=== PATIENT | female | born 1955 | race Caucasian/White ===

== ENCOUNTER 2022-10-31 09:25 | Emergency (ER) | payer MEDICARE, SELFPAY ==
--- NOTE | 2022-10-31 09:36 | ED.ABDPAIN ---
HPI - Abdominal Pain General Chief Complaint: Abdominal Pain Stated Complaint: BLOATED/NAUSEA/FEVER/CHILLS Time Seen by Provider: 10/31/22 09:36 Source: patient and RN notes reviewed History of Present Illness HPI narrative: Patient is a 67-year-old female who presents to urgent care with complaints of lower abdominal bloating, flank pain, nausea, urinary frequency and urgency. Patient has a strong history of kidney stones with stent placement and lithotripsy with the last 1 being in March of 2022. Patient states symptoms started on Sunday and these are consistent with her typical kidney stone symptoms. Patient has been taking Tylenol for the chills and sweats. Denies any vomiting. No other acute complaints. No acute distress noted. Patient aware of plan of care. Some parts of this dictation were generated by voice recognition software and may contain typographical and/or grammatical inaccuracies. Related Data Home Medications Medication Instructions Recorded Confirmed allopurinol 300 mg tablet 300 mg PO DIRECTED 10/31/22 10/31/22 atorvastatin 40 mg tablet 40 mg PO DAILY 10/31/22 10/31/22 glimepiride 1 mg tablet 1 mg PO DAILY 10/31/22 10/31/22 ipratropium bromide 42 mcg (0.06 42 mcg intranasal DIRECTED 10/31/22 10/31/22 %) nasal spray metformin 500 mg tablet,extended 500 mg PO DIRECTED 10/31/22 10/31/22 release 24 hr sertraline 100 mg tablet 100 mg PO DAILY 10/31/22 10/31/22 sertraline 50 mg tablet 50 mg PO DAILY 10/31/22 10/31/22 Allergies Allergy/AdvReac Type Severity Reaction Status Date / Time Sulfa (Sulfonamide Allergy Rash Verified 10/31/22 09:31 Antibiotics) terconazole Allergy Other Verified 10/31/22 09:31 Review of Systems Review of Systems: CONSTITUTIONAL: Denies fever, chills, or sweats. EYES: Denies visual changes, redness, or discharge. ENT: Denies rhinorrhea, congestion, sore throat, or otalgia. CARDIOVASCULAR: Denies chest pain, palpitations, or edema. RESPIRATORY: Denies cough or dyspnea. GASTROINTESTINAL: Reports of nausea and abdominal bloating GENITOURINARY: Reports of urinary urgency, frequency, bilateral flank pain SKIN: Denies rash or itching. MUSCULOSKELETAL: Denies back pain, joint pain, or myalgia. NEUROLOGIC: Denies headache, numbness, or weakness. All other systems reviewed are negative, except as documented in HPI. PMFSH Comments At the time of my signature, I reviewed and agree with the nursing past medical, surgical, social, and family history. There is no relevant family history pertinent to the patient complaint. Exam Narrative: GENERAL: This is a well-nourished, well-developed patient, in no apparent distress. HEAD: normocephalic, atraumatic. EYES: PERRL. Sclera clear/white. Vision is grossly intact. EARS: External ears normal NOSE: External nose normal with no obvious nasal discharge, nares without redness, no rhinorrhea. THROAT: Mucous membranes moist NECK: Neck supple CARDIOVASCULAR: Regular rate RESPIRATORY: Clear to auscultation. Breath sounds equal bilaterally. No wheezes, rales, or rhonchi. GASTROINTESTINAL: Abdomen soft, moderate right and left lower quadrant/suprapubic tenderness. Bowel sounds are active. SKIN: warm, intact with no suspicious lesions or rash, good texture and turgor. NEURO: awake, alert, and oriented to person, place and time. There were no obvious focal neurologic abnormalities. EXTREMITIES: No clubbing, cyanosis, or edema. BACK: Mild bilateral CVA tenderness Course Course Level of Care: Express Care Visit Vital Signs Vital signs: Vital Signs Temperature 97.7 F 10/31/22 09:48 Pulse Rate 87 10/31/22 09:48 Respiratory Rate 16 10/31/22 09:48 Blood Pressure 159/98 H 10/31/22 09:48 Pulse Oximetry 97 10/31/22 09:48 Temperature 97.7 F 10/31/22 09:48 Pulse Rate 87 10/31/22 09:48 Respiratory Rate 16 10/31/22 09:48 Blood Pressure 159/98 H 10/31/22 09:48 Pulse Oximetry 97 10/31/22 09:48
[2022-10-31 09:48] VITALS: BP 159/98; PULSE 87; RESP 16; TEMP 36.5; O2SAT 97
== END 2022-10-31 10:04 | disposition short-term general hospital (02) ==
PROVIDERS: Emergency Provider Nurse Practitioner Family
DX: R39.15 Urgency of urination (principal); R10.9 Unspecified abdominal pain; R82.90 Unspecified abnormal findings in urine; M10.9 Gout, unspecified; M06.9 Rheumatoid arthritis, unspecified; E11.9 Type 2 diabetes mellitus without complications; F41.9 Anxiety disorder, unspecified; Z96.0 Presence of urogenital implants
CPT/HCPCS: 81003; 99202; G0463

== ENCOUNTER 2022-10-31 10:30 | Inpatient (IN) | payer MEDICARE, SELFPAY ==
--- NOTE | ~2022-10-31 | CT_ITS ---
EXAMINATION: CT abdomen pelvis w con DATE: 10/31/2022 12:02 INDICATION: Right flank pain. TECHNIQUE: Computed tomography (CT) of the abdomen and pelvis was performed with 100 mL Omnipaque 350 intravenous contrast. Automated exposure control and iterative reconstruction technique were employe d. The dose-length product was 1124.38 mGy-cm. COMPARISON: None. FINDINGS: The visualized portions of the lung bases demonstrate mild scarring in paraspinal right low er lobe. There are a few scattered nodules in the lungs measuring up to 7 mm. Some of the nodules dem onstrate groundglass halos. No pleural effusion. The heart size is normal. No pericardial effusion. T he liver demonstrates hypertrophy of left lateral segment and surface nodularity, consistent with cir rhosis. There is mild intrahepatic and extrahepatic biliary duct dilatation. The common duct measures 12 mm. There are changes of cholecystectomy. The spleen is normal. There is mild fat stranding aroun d the pancreas, consistent with acute interstitial pancreatitis. The adrenal glands are normal. There are cysts in the kidneys measuring up to 2.2 cm on the right. There is a 5 mm stone in right kidney. There is diverticulosis of the colon without evidence of diverticulitis. There are no dilated loops of bowel. The appendix is normal. Paraesophageal varices are noted. Periumbilical varices are noted. There are no pathologically enlarged lymph nodes. There is no free intraperitoneal fluid. There is se nicolle lower lumbar spondylosis. There is mild thoracic spondylosis. IMPRESSION: 1. Cirrhosis of the liver with portal venous hypertension. 2. Acute interstitial pancreatitis. 3. Mild intrahepatic and extrahepatic biliary duct dilatation status post cholecystectomy. 4. Pulmonary nodules measuring up to 7 mm, probably infection. Noncontrast low-dose chest CT is recom mended in 6 months. Reviewed, dictated and finalized at location A. ANNEAL[facility] IMPRESSION: 1. Cirrhosis of the liver with portal venous hypertension. 2. Acute interstitial pancreatitis. 3. Mild intrahepatic and extrahepatic biliary duct dilatation status post chanel cystectomy. 4. Pulmonary nodules measuring up to 7 mm, probably infection. Noncontrast low- dose chest CT is recommended in 6 months.
--- NOTE | ~2022-10-31 | MR_ITS ---
EXAMINATION: MR MRCP wo/w con/w 3D wo ind DATE: 10/31/2022 16:20 INDICATION: Pancreatitis, abdominal pain TECHNIQUE: Magnetic resonance imaging (MRI) of the abdomen was performed without and with intravenous contrast. Sequences included coronal T2-weighted SS-FSE ARC, coronal T2-weighted FS SS-FSE, coronal T2-weighted 2D FS FIESTA, Water:Coronal LAVA-Flex, sagittal T2-weighted SS-FSE ARC, axial SSFSE ARC, axial 3D DualEcho, axial DWI B=600, axial T1-weighted LAVA, FAT:Coronal LAVA-Flex, and coronal in and opposed phase LAVA-Flex. Thick-slab T2-weighted FRFSE-XL images were obtained for magnetic resonance cholangiopancreatography (MRCP). Maximum intensity projection 3-D reconstructions of the volumetric data were created by the technologist. Postcontrast sequences included a time course of axial T1-weig hted LAVA, FAT:Coronal LAVA-Flex, coronal in and opposed phase LAVA-Flex, and Water:Coronal LAVA-Flex . COMPARISON: CT from today CONTRAST: Multihance, 18 cc FINDINGS: ABDOMEN MRI: Nodules of the visualized lung bases measure up to 1.6 cm. The heart size is normal. The re is nodularity of the liver surface. There are numerous small arterially enhancing lesions of the l iver without washout on delayed images. The gallbladder is surgically absent. The spleen and adrenal glands are normal. Cysts of the kidneys measure up to 2.2 cm on the right. There is mild peripancrea tic edema. There are no areas of restricted diffusion. No pathologically enlarged abdominal lymph nod es are identified. There are no dilated loops of bowel. The portal and hepatic veins are patent. ABDOMEN MRCP: There is mild enlargement of the common bile duct and central intrahepatic ducts which is likely due to post cholecystectomy state. The common bile duct measures up to 12 mm. There is arellano sition to normal caliber in the head of the pancreas without obvious stricture identified. IMPRESSION: 1. Mild peripancreatic fluid, consistent with interstitial edematous pancreatitis. 2. Dilated common bile duct and intrahepatic ducts, consistent with post cholecystectomy state. 3. Cirrhosis with numerous small arterial enhancing lesions without washout in the liver. Follow-up M RI without and with contrast in 3-6 months is recommended. Reviewed, dictated and finalized at location L. TIC ENGINEER IMPRESSION: 1. Mild peripancreatic fluid, consistent with interstitial edematous pancreatit is. 2. Dilated common bile duct and intrahepatic ducts, consistent with post cholec ystectomy state. 3. Cirrhosis with numerous small arterial enhancing lesions without washout in the liver. Follow-up MRI without and with contrast in 3-6 months is recommended .
[2022-10-31 10:54] VITALS: BP 153/103; PULSE 86; RESP 18; TEMP 36.4; O2SAT 96
[2022-10-31 11:27] LABS: Basophils Absolute Auto 0.1 K/mm3 (0.0-0.1); Basophils Percent Auto 0.5 % (0.2-1.2); Eosinophils Absolute Auto 0.1 K/mm3 (0-0.3); Eosinophils Percent Auto 1.1 % (0-4.4); Hematocrit 45.9 % (37.0-47.0); Hemoglobin 14.7 g/dL (12.0-15.0); Immature Granulocyte Absolute 0.03 K/mm3 (0.00-0.031); Immature Granulocyte Percent A 0.3 % (0-0.5); Lymphocytes Absolute Auto 1.62 K/mm3 (0.9-3.2); Lymphocytes Percent Auto 17.1 % (18.3-44.2); Mean Corpuscular Hemoglobin 28.8 pg (26-34); Mean Corpuscular Volume 89.8 fl (80-100); Mean Platelet Volume 10.9 fl (7.4-10.4); Monocytes Absolute Auto 0.7 K/mm3 (0.1-0.6); Platelet Count Result 279 k/mm3 (150-375); Red Blood Count 5.11 M/mm3 (4.2-5.4); Red Cell Distribution Width 13.7 % (11.5-14.5); White Blood Count 9.5 K/mm3 (4.5-10.0)
[2022-10-31 11:28] LABS: Add Urine Microscopic? YES; Appearance Urine Clear (Clear); Bilirubin Urine 1+ (Negative); Blood Urine 1+ (Negative); Color Urine Yellow (Yellow); Glucose Urine UA 3+ mg/dL (Negative); Ketones Urine 1+ mg/dL (Negative); Leukocyte Esterase Ur Trace LEU/UL (Negative); Nitrate Urine Negative (Negative); Protein Urine Trace mg/dL (Negative); Specific Grav Ur >= 1.030 (1.001-1.035); Urobilinogen Urine 0.2 mg/dL (<2.0)
--- NOTE | 2022-10-31 11:29 | ED.ABDPAIN ---
HPI - Abdominal Pain General Chief Complaint: Abdominal Pain Stated Complaint: FLANK/ABD PAIN Time Seen by Provider: 10/31/22 11:21 History of Present Illness HPI narrative: 67-year-old female status post cholecystectomy presents to the emergency room for evaluation of lower abdominal pain since Sunday. Also complaining with occasional nausea. Denies any vomiting or diarrhea. Patient has a history of kidney stones. Denies any hematuria or urinary retention. States pain radiates into her right flank. Patient is afebrile Related Data Home Medications Medication Instructions Recorded Confirmed allopurinol 300 mg tablet 300 mg PO DIRECTED 10/31/22 10/31/22 atorvastatin 40 mg tablet 40 mg PO DAILY 10/31/22 10/31/22 glimepiride 1 mg tablet 1 mg PO DAILY 10/31/22 10/31/22 ipratropium bromide 42 mcg (0.06 42 mcg intranasal DIRECTED 10/31/22 10/31/22 %) nasal spray metformin 500 mg tablet,extended 500 mg PO DIRECTED 10/31/22 10/31/22 release 24 hr sertraline 100 mg tablet 100 mg PO DAILY 10/31/22 10/31/22 sertraline 50 mg tablet 50 mg PO DAILY 10/31/22 10/31/22 Allergies Allergy/AdvReac Type Severity Reaction Status Date / Time Sulfa (Sulfonamide Allergy Rash Verified 10/31/22 09:31 Antibiotics) terconazole Allergy Other Verified 10/31/22 09:31 promethazine [From Phenergan] AdvReac Shakiness Verified 10/31/22 11:39 Review of Systems Review of Systems: CONSTITUTIONAL: Denies fever, chills, or sweats. EYES: Denies visual changes, redness, or discharge. ENT: Denies rhinorrhea, congestion, sore throat, or otalgia. CARDIOVASCULAR: Denies chest pain, palpitations, or edema. RESPIRATORY: Denies cough or dyspnea. GASTROINTESTINAL: Reports abdominal pain, nausea, denies vomiting and diarrhea GENITOURINARY: Denies dysuria or hematuria. SKIN: Denies rash or itching. MUSCULOSKELETAL: Denies back pain, joint pain, or myalgia. NEUROLOGIC: Denies headache, numbness, dizziness, or weakness. PSYCHIATRIC: Denies anxiety or depression. Exam Narrative: GENERAL: Well-appearing, well-nourished, no physical limitations, and in no acute distress. HEAD: Normocephalic, atraumatic. EYES: Conjunctivae normal, PERRLA and EOMI. CHEST: Clear to auscultation. No respiratory distress. No wheezes rales or rhonchi. HEART: Regular rate and rhythm. No murmur heard. Normal peripheral pulses. ABDOMEN: Soft, right lower quadrant left lower quadrant suprapubic tenderness, nondistended, normal active bowel sounds. : Normal external male/female exam. BACK: Right CVA tendernes EXTREMITIES: Normal range of motion. No edema. No clubbing or cyanosis SKIN: Warm, dry, no rash. No noted wounds NEURO: No focal deficits. Alert and oriented x3. MAEW. CN's II-XI intact bilaterally, normal gait PSYCH: Cooperative. Normal mood and affect. Course Vital Signs Vital signs: Vital Signs Temperature 36.4 C L 10/31/22 10:54 Pulse Rate 86 10/31/22 10:54 Respiratory Rate 18 10/31/22 10:54 Blood Pressure 153/103 H 10/31/22 10:54 Pulse Oximetry 96 10/31/22 10:54 Oxygen Delivery Room Air 10/31/22 10:54 Temperature 36.4 C L 10/31/22 10:54 Pulse Rate 86 10/31/22 10:54 Respiratory Rate 18 10/31/22 10:54 Blood Pressure 153/103 H 10/31/22 10:54 Pulse Oximetry 96 10/31/22 10:54 Oxygen Delivery Room Air 10/31/22 10:54 MDM - Abdominal Pain Lab Data 10/31/22 11:12 10/31/22 11:12 Labs: Lab Results 10/31/22 10/31/22 10/31/22 Range/Units 11:12 11:12 11:18 WBC 9.5 (4.5-10.0) K/mm3 RBC 5.11 (4.2-5.4) M/mm3 Hgb 14.7 (12.0-15.0) g/dL Hct 45.9 (37.0-47.0) % MCV 89.8 (80-100) fl MCH 28.8 (26-34) pg MCHC 32.0 (32-36) g/dl RDW 13.7 (11.5-14.5) % Plt Count 279 (150-375) k/mm3 MPV 10.9 H (7.4-10.4) fl Immature Gran % (Auto) 0.3 (0-0.5) % Neut % (Auto) 74.0 H (45.5-73.1) % Lymph % (Auto) 17.1 L (18.3-44.2) % [place] % (Auto) 7.0
[2022-10-31 11:35] LABS: Alanine Aminotransferase 446 U/L (6-35); Albumin Level 4.7 g/dL (3.5-5.1); Alkaline Phosphatase 395 U/L (38-126); Anion Gap 9 mmol/L (8-16); Aspartate Amino Transferase 281 U/L (14-36); Blood Urea Nitrogen 15 mg/dL (7-17); Calcium 9.9 mg/dL (8.4-10.2); Carbon Dioxide 26 mmol/L (22-30); Chloride 99 mmol/L (98-107); Estimated Glomerular Filt Rate > 60; Glucose 264 mg/dL (65-110); Lipase 1117 U/L (23-300); Potassium 3.7 mmol/L (3.4-5.0); Sodium 134 mmol/L (137-145)
[2022-10-31 11:37] LABS: Calcium Oxalate Crystals Urine Present /hpf; Mucus Urine Few /lpf; Squamous Epithelial Cell Urine Rare /hpf (Few)
[2022-10-31] MEDS: SODIUM CHLORIDE 0.9% IV 1,000 ML 999 ML IV CONT (11:40)
[2022-10-31 13:19] LABS: SARS-CoV-2 RNA PCR Negative
[2022-10-31 13:49] VITALS: BP 139/83; PULSE 78; RESP 18; O2SAT 97
--- NOTE | 2022-10-31 14:19 | ADMGEN ---
This patient, Dana Underwood, was admitted to 3 Med Surg Room 304-02. Patient/family oriented to hospital policies and general routines including ID bracelet, bed and alarms, visiting hours, pain management, procedures, bathroom and other care routines, personal items, smoking policy, room service/diet, and visiting hours. Information on how to activate the Rapid Response Team has been discussed. Patient/Family are encouraged to report perceived risks to care and to ask questions if they do not understand what they are told or what they should do.
[2022-10-31 17:16] LABS: Creatine Kinase 72 U/L (30-135); Magnesium 1.8 mg/dL (1.6-2.3); Prothrombin Time 12.9 Seconds (11.1-14.7)
[2022-10-31 17:18] LABS: Partial Thromboplastin Time 25.5 SECONDS (22.3-36.8)
--- NOTE | 2022-10-31 17:30 | PM.IMHP ---
H&P: HPI History of Present Illness Date/Time: 10/31/22 17:30 Chief Complaint: Abdominal pain. Narrative: This is a very pleasant 67-year-old female with history of cirrhosis secondary to COELLO, kidney stones, diabetes, and hyperlipidemia who presented to the emergency department from urgent care for evaluation of abdominal pain. She endorses intermittent abdominal pain since Sunday including occasional ?pings in the mid to low back radiating to the flanks and occasionally into the groin. She has thus far been attributing the pain to kidney stones and due to ongoing issue she went to urgent care today and was referred to the ER. CT of the abdomen and pelvis showed a 5 millimeter stone right kidney but more importantly showed acute interstitial pancreatitis and mild intrahepatic and extrahepatic biliary duct dilatation status post cholecystectomy. Her lipase, AST, ALT, and alkaline phosphatase were all elevated and she is being admitted in this setting for further treatment and evaluation. She has since been started on IV fluid rehydration and is receiving analgesics intermittently which seemed to have helped her symptoms. She has no history of pancreatitis and she is surprised by these findings. With further questioning she has had intermittent burning discomfort in the epigastric region since Sunday night which she attributes to indigestion though she very rarely has GERD symptoms. She did have nausea and 1 episode of emesis this morning during her MRCP but that has since resolved. She has not had a fever to her knowledge but does endorse sweats. No cold or flu symptoms. No diarrhea, melena, hematochezia, or hematemesis. Review of Systems Review of Systems: Twelve systems were reviewed and are negative except for as per HPI. 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 Type 2 diabetes mellitus Surgical History Surgical History (Updated 10/31/22 @ 15:42 by Jovanna Navarrete PA-C) History of carpal tunnel release of both wrists History of cholecystectomy History of cystoscopy History of tonsillectomy Family History Family History (Updated 10/31/22 @ 23:42 by Jovanna Navarrete PA-C) Other Hypertension Social History Social History (Updated 10/31/22 @ 23:43 by Jovanna Navarrete PA-C) Social History: Surrogate medical decision maker: Gui Underwood, spouse. Code status: Full code. Smoking status: Never smoker Alcohol intake: never Substance use: never Substance use type: does not use Lack of Transportation: No Lack of Food: Never True Current Housing: I Have Housing Concerned About Future Housing: No Difficulty Paying Gas/Electric Bills: No Difficulty Paying for Meds: No Currently Unemployed: No Education: Master's Degree or Higher Difficulty w/ Childcare or Family Care: No Additional living arrangements comments: Lives in [place] with spouse. They have an apartment in town and visit their children and grandchildren often. 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[employer], plays harp and organ Spiritual care concerns: No Meds Home Medications and Allergies Home Medications Medication Instructions Recorded Confirmed Type Adult Probiotic 1 cap PO DAILY 10/31/22 10/31/22 History allopurinol 300 mg tablet 300 mg PO DAILY 10/31/22 10/31/22 History atorvastatin 40 mg tablet 40 mg PO DAILY 10/31/22 10/31/22 History glimepiride 1 mg tablet 1 mg PO BID 10/31/22 10/31/22 History insulin NPH isoph U-100 human 100 34 unit subcut HS 10/31/22 10/31/22 History unit/mL (3 mL) subcutaneous pen (Novolin N FlexPen) magnesium citrate 100 mg capsule 200 mg PO DAILY 10/31/22 10/31/22 History metformin 500 mg tablet,extended 1,00
[2022-10-31 18:07] LABS: Glucose Point of Care 151 mg/dl (65-105)
[2022-10-31 18:42] LABS: Hepatitis B Surface Antigen Negative (Negative)
[2022-10-31 18:48] LABS: HAV RESULT Negative (Negative); Hepatitis B Core IgM Result Negative (Negative)
[2022-10-31 19:00] LABS: Hepatitis C Virus Antibody Negative (Negative)
[2022-10-31 20:00] VITALS: PULSE 67; RESP 19; O2SAT 97
[2022-10-31 21:27] LABS: Glucose Point of Care 138 mg/dl (65-105)
[2022-10-31 22:00] VITALS: BP 154/73; PULSE 67; RESP 19; TEMP 36.6; O2SAT 97
[2022-10-31 23:43] VITALS: PULSE 68; O2SAT 96
[2022-11-01 01:10] LABS: Acetaminophen < 10 ug/mL (10-30)
[2022-11-01 01:25] LABS: Creatine Kinase 67 U/L (30-135)
[2022-11-01 02:06] VITALS: PULSE 65; O2SAT 96; O2SAT 97
[2022-11-01 06:00] VITALS: BP 158/81; PULSE 73; RESP 18; TEMP 36.3; O2SAT 95
[2022-11-01 06:17] LABS: Hematocrit 39.4 % (37.0-47.0); Hemoglobin 12.7 g/dL (12.0-15.0); Mean Corpuscular HGB Conc 32.2 g/dl (32-36); Mean Corpuscular Hemoglobin 28.5 pg (26-34); Mean Corpuscular Volume 88.3 fl (80-100); Mean Platelet Volume 10.9 fl (7.4-10.4); Platelet Count Result 223 k/mm3 (150-375); Red Blood Count 4.46 M/mm3 (4.2-5.4); Red Cell Distribution Width 13.7 % (11.5-14.5); White Blood Count 8.9 K/mm3 (4.5-10.0)
[2022-11-01 06:28] LABS: INR 1.1; Prothrombin Time 13.4 Seconds (11.1-14.7)
[2022-11-01 06:29] LABS: Partial Thromboplastin Time 26.3 SECONDS (22.3-36.8)
[2022-11-01 06:33] LABS: Alanine Aminotransferase 334 U/L (6-35); Alkaline Phosphatase 334 U/L (38-126); Anion Gap 5 mmol/L (8-16); Aspartate Amino Transferase 249 U/L (14-36); Bilirubin,Total 0.9 mg/dL (0.2-1.3); Blood Urea Nitrogen 10 mg/dL (7-17); Calcium 8.9 mg/dL (8.4-10.2); Carbon Dioxide 24 mmol/L (22-30); Chloride 107 mmol/L (98-107); Estimated Glomerular Filt Rate > 60; Glucose 163 mg/dL (65-110); Lipase 1216 U/L (23-300); Potassium 3.5 mmol/L (3.4-5.0); Sodium 136 mmol/L (137-145)
[2022-11-01 07:01] LABS: Hepatitis B Surface Antigen Negative (Negative)
[2022-11-01 07:07] LABS: HAV RESULT Negative (Negative); Hepatitis B Core IgM Result Negative (Negative)
[2022-11-01 07:18] LABS: Hepatitis C Virus Antibody Negative (Negative)
[2022-11-01] MEDS: SODIUM CHLORIDE 0.9% IV 1,000 ML 125 ML IV CONT ×2 (08:38→16:25)
[2022-11-01 10:46] VITALS: O2SAT 94
--- NOTE | 2022-11-01 11:16 | PM.IMPN ---
Progress Note: A&P Assessment and Plan (1) Acute pancreatitis: Code(s): K85.90 - Acute pancreatitis without necrosis or infection, unspecified Status: Acute Assessment and Plan: NPO, continue IV fluids and pain control. MRCP noted. Await plan from GI (2) Dilated bile duct: Code(s): K83.8 - Other specified diseases of biliary tract Status: Acute Assessment and Plan: Await planned GI (3) Transaminitis: Code(s): R74.01 - Elevation of levels of liver transaminase levels Status: Acute Assessment and Plan: Patient has chronic liver disease, reportedly cirrhosis due to COELLO. Her LFTs are not typically this high however. She indicates that she had a blood test done not long ago ?for cancer? which came back a bit elevated however that is being monitored. Records requested from her GI specialist in [place]. (4) Cirrhosis: Code(s): K74.60 - Unspecified cirrhosis of liver Status: Acute Assessment and Plan: No evidence of decompensation. She has known varices with no history of bleeding. (5) Pulmonary nodules: Code(s): R91.8 - Other nonspecific abnormal finding of lung field Status: Acute Assessment and Plan: No history to suggest active pulmonary infection. Radiologist recommends repeat CT in several months. (6) Abnormal urinalysis: Code(s): R82.90 - Unspecified abnormal findings in urine Status: Inactive Assessment and Plan: No symptoms to suggest UTI. (7) Kidney stones: Code(s): N20.0 - Calculus of kidney Status: Acute Assessment and Plan: 5 millimeter right kidney stone noted on imaging. Not currently causing issues. (8) Type 2 diabetes mellitus: Code(s): E11.9 - Type 2 diabetes mellitus without complications Status: Acute Assessment and Plan: Hold basal insulin and glimepiride as she is NPO and has not been eating well. Initiate sliding scale insulin, Accu-Cheks, and hypoglycemic protocol. Check hemoglobin A1c. (9) Hypertension: Code(s): I10 - Essential (primary) hypertension Status: Acute Assessment and Plan: Blood pressures were reviewed and they are stable. (10) Pulmonary nodule: Code(s): R91.1 - Solitary pulmonary nodule Status: Acute Assessment and Plan: Follow-up CT scan in 6 months (11) Liver mass: Code(s): R16.0 - Hepatomegaly, not elsewhere classified Status: Acute Assessment and Plan: Follow-up MR and in 3 to 6 month Subjective Date/time seen: 11/01/22 11:16 No new complaints. Exam Narrative: General: Mildly ill-appearing female in the semi-Bang position in bed. Weight: 90 kilograms. HEENT: Wearing glasses. PERRL, EOMI. Sclera anicteric. Tacky mucous membranes. Neck: Supple. Respiratory: Lungs are clear to auscultation bilaterally. Cardiovascular: Regular rate and rhythm with S1-S2. Gastrointestinal: Abdomen is soft and nondistended with positive bowel sounds. She is tender to palpation epigastric region more so in the left upper quadrant. No guarding or rebound tenderness. Skin: Warm and dry. No rash or lesions on limited exam. Extremities: No cyanosis, clubbing, or edema. Radial and pedal pulses intact. Neurological: Alert. Cranial nerves 2-12 are grossly intact. No gross focal deficits to casual conversation. Psychiatric: Pleasant and cooperative with normal mood and affect. Judgment and insight intact. Objective Data Vital Signs Vital Signs: Vital Signs - 24 hr 10/31/22 13:49 10/31/22 22:00 10/31/22 20:00 Temperature 97.8 F Pulse Rate 78 67 67 Respiratory Rate 18 19 19 Blood Pressure 139/83 154/73 H Pulse Oximetry 97 97 97 Oxygen Delivery CPAP Fraction of Inspired Oxygen 10/31/22 23:43 10/31/22 23:43 11/01/22 02:06 Temperature Pulse Rate 68 Respiratory Rate Blood Pressure Pulse Oximetry 96 96 96 Oxygen Delivery C
[2022-11-01 11:58] LABS: Glucose Point of Care 139 mg/dl (65-105)
[2022-11-01] MEDS: ONDANSETRON INJ 4 MG/2 ML VIAL IV PUSH (12:01)
[2022-11-01 14:00] VITALS: BP 145/72; PULSE 73; RESP 16; TEMP 36.3; O2SAT 98
--- NOTE | 2022-11-01 16:22 | WPDGICN ---
Assessment and Plan Assessment and plan (1) Acute pancreatitis: Code(s): K85.90 - Acute pancreatitis without necrosis or infection, unspecified Status: Acute Assessment and Plan: new episode, no alcohol and no stones in bile duct start liquid diet (2) Dilated bile duct: Code(s): K83.8 - Other specified diseases of biliary tract Status: Acute Assessment and Plan: reviewed, normal bilirubin no need of ercp (no stones or filling defect) (3) Liver cirrhosis secondary to COELLO: Code(s): K75.81 - Nonalcoholic steatohepatitis (COELLO); K74.60 - Unspecified cirrhosis of liver Status: Acute Assessment and Plan: she is established with hepatology in [place], will need repeat MRI with liver protocol in 3 months (4) Type 2 diabetes mellitus: Code(s): E11.9 - Type 2 diabetes mellitus without complications Status: Acute GI Consult Note Consult date/time: 11/01/22 16:22 Reason for consult: pancreatitis HPI: Dana Underwood is a 67 year old female with history of COELLO cirrhosis seeing hepatology in [place] (she is visiting family now), kidney stones, diabetes, and hyperlipidemia who came to ER after new onset of abdominal pain that got severe, initially she thought that was due to kidney stones and went to urgent care and advised to come to ER. CT of the abdomen and pelvis showed a 5 millimeter stone right kidney but also acute interstitial pancreatitis and mild intrahepatic and extrahepatic biliary duct dilatation status post cholecystectomy. MRCP negative for stones in bile duct, cirrhosis. Also found to have elevated lipase and transaminases (she was told in the past her transaminases to be 150's)- now 200-300, normal bilirubin. Feeling better now. Denies alcohol use. Review of Systems Review of Systems: CONSTITUTIONAL: Denies fever, chills, or sweats. EYES: Denies visual changes, redness, or discharge. ENT: Denies rhinorrhea, congestion, sore throat, or otalgia. CARDIOVASCULAR: Denies chest pain, palpitations, or edema. RESPIRATORY: Denies cough or dyspnea. GASTROINTESTINAL: Reports abdominal pain, nausea, denies vomiting and diarrhea GENITOURINARY: Denies dysuria or hematuria. SKIN: Denies rash or itching. MUSCULOSKELETAL: Denies back pain, joint pain, or myalgia. NEUROLOGIC: Denies headache, numbness, dizziness, or weakness. PSYCHIATRIC: Denies anxiety or depression. [facility] Past Medical History Medical History (Updated 11/01/22 @ 11:18 by Joel Hutson MD) Hypertension Kidney stones Liver cirrhosis secondary to COELLO Non-alcoholic fatty liver disease With portal venous hypertension and paraesophageal varices noted on CT taken 10/31/2022. Type 2 diabetes mellitus Surgical History Surgical History (Updated 10/31/22 @ 15:42 by Jovanna Navarrete PA-C) History of carpal tunnel release of both wrists History of cholecystectomy History of cystoscopy History of tonsillectomy Family History Family History (Updated 10/31/22 @ 23:42 by Jovanna Navarrete PA-C) Other Hypertension Social History Social History (Updated 10/31/22 @ 23:43 by Jovanna Navarrete PA-C) Social History: Surrogate medical decision maker: Gui Underwood, spouse. Code status: Full code. Smoking status: Never smoker Alcohol intake: never Substance use: never Substance use type: does not use Lack of Transportation: No Lack of Food: Never True Current Housing: I Have Housing Concerned About Future Housing: No Difficulty Paying Gas/Electric Bills: No Difficulty Paying for Meds: No Currently Unemployed: No Education: Master's Degree or Higher Difficulty w/ Childcare or Family Care: No Additional living arrangements comments: Lives in [place] with spouse. They have an apartment in town and visit their children and grandchildren often. 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
[2022-11-01 17:42] LABS: Glucose Point of Care 150 mg/dl (65-105)
[2022-11-01] MEDS: INSULIN HUMAN NPH (*BKC) 100 UNITS/ML 34 UNITS SUB-Q (21:02)
[2022-11-01 21:56] LABS: Glucose Point of Care 168 mg/dl (65-105)
[2022-11-01 22:00] VITALS: BP 142/59; PULSE 65; RESP 18; TEMP 36.4; O2SAT 95
[2022-11-01 23:00] VITALS: PULSE 70; O2SAT 95
[2022-11-02] MEDS: SODIUM CHLORIDE 0.9% IV 1,000 ML 125 ML IV CONT ×3 (00:33→16:34)
[2022-11-02 06:00] VITALS: BP 142/67; PULSE 62; RESP 18; TEMP 36.2; O2SAT 94
[2022-11-02 06:40] LABS: Alanine Aminotransferase 399 U/L (6-35); Albumin Level 3.8 g/dL (3.5-5.1); Alkaline Phosphatase 398 U/L (38-126); Anion Gap 5 mmol/L (8-16); Aspartate Amino Transferase 487 U/L (14-36); Blood Urea Nitrogen 6 mg/dL (7-17); Calcium 9.1 mg/dL (8.4-10.2); Carbon Dioxide 27 mmol/L (22-30); Chloride 106 mmol/L (98-107); Estimated Glomerular Filt Rate > 60; Glucose 114 mg/dL (65-110); Potassium 3.3 mmol/L (3.4-5.0); Sodium 138 mmol/L (137-145)
[2022-11-02 06:47] LABS: Lipase 1985 U/L (23-300)
[2022-11-02 08:27] LABS: Glucose Point of Care 127 mg/dl (65-105)
[2022-11-02 08:39] LABS: Carcinoembryonic Antigen 1.6 ng/mL (0.0-3.0)
[2022-11-02] MEDS: POTASSIUM CHLORIDE 20 MEQ TABLET 40 MEQ PO (08:39)
[2022-11-02 12:05] LABS: Glucose Point of Care 134 mg/dl (65-105)
--- NOTE | 2022-11-02 12:57 | PM.IMPN ---
Progress Note: A&P Assessment and Plan (1) Acute pancreatitis: Code(s): K85.90 - Acute pancreatitis without necrosis or infection, unspecified Status: Acute Assessment and Plan: IV fluids and pain control. MRCP noted. Await plan from GI (2) Dilated bile duct: Code(s): K83.8 - Other specified diseases of biliary tract Status: Acute Assessment and Plan: Await planned GI (3) Transaminitis: Code(s): R74.01 - Elevation of levels of liver transaminase levels Status: Acute Assessment and Plan: Patient has chronic liver disease, reportedly cirrhosis due to COELLO. Her LFTs are not typically this high however. She indicates that she had a blood test done not long ago ?for cancer? which came back a bit elevated however that is being monitored. Records requested from her GI specialist in [place]. (4) Cirrhosis: Code(s): K74.60 - Unspecified cirrhosis of liver Status: Acute Assessment and Plan: No evidence of decompensation. She has known varices with no history of bleeding. (5) Pulmonary nodules: Code(s): R91.8 - Other nonspecific abnormal finding of lung field Status: Acute Assessment and Plan: No history to suggest active pulmonary infection. Radiologist recommends repeat CT in several months. (6) Abnormal urinalysis: Code(s): R82.90 - Unspecified abnormal findings in urine Status: Inactive Assessment and Plan: No symptoms to suggest UTI. (7) Kidney stones: Code(s): N20.0 - Calculus of kidney Status: Acute Assessment and Plan: 5 millimeter right kidney stone noted on imaging. Not currently causing issues. (8) Type 2 diabetes mellitus: Code(s): E11.9 - Type 2 diabetes mellitus without complications Status: Acute Assessment and Plan: Hold basal insulin and glimepiride as she is NPO and has not been eating well. Initiate sliding scale insulin, Accu-Cheks, and hypoglycemic protocol. Check hemoglobin A1c. (9) Hypertension: Code(s): I10 - Essential (primary) hypertension Status: Acute Assessment and Plan: Blood pressures were reviewed and they are stable. (10) Pulmonary nodule: Code(s): R91.1 - Solitary pulmonary nodule Status: Acute Assessment and Plan: Follow-up CT scan in 6 months (11) Liver mass: Code(s): R16.0 - Hepatomegaly, not elsewhere classified Status: Acute Assessment and Plan: Follow-up MR and in 3 to 6 month Subjective Date/time seen: 11/02/22 12:57 Still having some right upper quadrant pain. Labs worse than yesterday. Exam Narrative: General: Mildly ill-appearing female in the semi-Bang position in bed. Weight: 90 kilograms. HEENT: Wearing glasses. PERRL, EOMI. Sclera anicteric. Tacky mucous membranes. Neck: Supple. Respiratory: Lungs are clear to auscultation bilaterally. Cardiovascular: Regular rate and rhythm with S1-S2. Gastrointestinal: Abdomen is soft and nondistended with positive bowel sounds. She is tender to palpation epigastric region more so in the left upper quadrant. No guarding or rebound tenderness. Skin: Warm and dry. No rash or lesions on limited exam. Extremities: No cyanosis, clubbing, or edema. Radial and pedal pulses intact. Neurological: Alert. Cranial nerves 2-12 are grossly intact. No gross focal deficits to casual conversation. Psychiatric: Pleasant and cooperative with normal mood and affect. Judgment and insight intact. Objective Data Vital Signs Vital Signs: Vital Signs - 24 hr 11/01/22 14:00 11/01/22 20:00 11/01/22 23:00 Temperature 97.4 F L Pulse Rate 73 70 Respiratory Rate 16 Blood Pressure 145/72 H Pulse Oximetry 98 95 Oxygen Delivery Room Air CPAP 11/01/22 22:00 11/02/22 06:00 Temperature 97.5 F L 97.2 F L Pulse Rate 65 62 Respiratory Rate 18 18 Blood Pressure 142/59 H 142/67 H Pulse Oximetry 95 94
[2022-11-02 14:00] VITALS: BP 167/81; PULSE 62; RESP 16; TEMP 36.2; O2SAT 95
--- NOTE | 2022-11-02 16:34 | WPDGIPROGNO ---
Progress Note: A&P Assessment and Plan (1) Acute pancreatitis: Code(s): K85.90 - Acute pancreatitis without necrosis or infection, unspecified Status: Acute Assessment and Plan: liquid diet for now (2) Liver cirrhosis secondary to COELLO: Code(s): K75.81 - Nonalcoholic steatohepatitis (COELLO); K74.60 - Unspecified cirrhosis of liver Status: Acute Assessment and Plan: seeing by hepatology will need repeat MRI liver in 3-6 months, will order AFP level (3) Transaminitis: Code(s): R74.01 - Elevation of levels of liver transaminase levels Status: Acute Assessment and Plan: she already had elevated transaminases as baseline, now higher in setting of pancreatitis (4) Dilated bile duct: Code(s): K83.8 - Other specified diseases of biliary tract Status: Acute Assessment and Plan: mrcp no stones or lesion in bile duct Subjective Date/time seen: 11/02/22 16:34 Interval history: still some pain, tolerating liquid diet, no more vomiting Review of Systems Review of Systems: All systems reviewed & are unremarkable except as noted in HPI and below Exam Narrative: General: Mildly ill-appearing female but comfortable HEENT: Wearing glasses. PERRL, EOMI. Sclera anicteric. Neck: Supple. Respiratory: Lungs are clear to auscultation bilaterally. Cardiovascular: Regular rate and rhythm with S1-S2. Gastrointestinal: Abdomen is soft and nondistended with positive bowel sounds. She is tender to palpation epigastric region. No guarding or rebound tenderness. Skin: Warm and dry. No rash. Extremities: No cyanosis, clubbing, or edema. Neurological: Alert. Cranial nerves 2-12 are grossly intact. No gross focal deficits to casual conversation. Psychiatric: Pleasant and cooperative with normal mood and affect. Judgment and insight intact. Objective Data Vital Signs Vital Signs: Vital Signs - 24 hr 11/01/22 20:00 11/01/22 23:00 11/01/22 22:00 Temperature 97.5 F L Pulse Rate 70 65 Respiratory Rate 18 Blood Pressure 142/59 H Pulse Oximetry 95 95 Oxygen Delivery Room Air CPAP 11/02/22 06:00 11/02/22 14:00 Temperature 97.2 F L 97.2 F L Pulse Rate 62 62 Respiratory Rate 18 16 Blood Pressure 142/67 H 167/81 H Pulse Oximetry 94 95 Oxygen Delivery Intake/Output Intake/Output: Intake & Output 10/30/22 10/31/22 11/01/22 11/02/22 23:59 23:59 23:59 23:59 Intake Total 1000 1500 2960 Output Total 200 Balance 800 1500 2960 Meds/Results Medications: Active Medications Generic Name Dose Route Start Last Admin Trade Name Freq PRN Reason Stop Dose Admin Dextrose 12.5 gm 10/31/22 15:49 Dextrose 50% 25 Gm/50 Ml Syringe IV PUSH PRN PRN Hypoglycemia Protocol Glucagon 1 mg 10/31/22 15:49 Glucagon For Inj 1 Mg Vial IM PRN PRN Hypoglycemia Protocol Glucose 15 gm 10/31/22 15:49 Glucose Oral Gel 15 Gm Of Glucse In 37.5 Gm Tube PO PRN PRN Hypoglycemia Protocol Hydromorphone HCl 0.5 mg 10/31/22 15:55 Hydromorphone Hcl Inj (*Crx) 1 Mg/Ml Syr IV PUSH Q4H PRN Pain Rated 7-10 Sodium Chloride 1,000 mls @ 125 mls/hr 10/31/22 12:45 11/02/22 08:38 Normal Saline Iv IV CONT 125 mls/hr .Q8H BIPIN Administration Dextrose 1,000 mls @ 100 mls/hr 10/31/22 15:49 Dextrose 5% 1,000 Ml IVPB PRN PRN Hypoglycemia Protocol Insulin Aspart 2 - 5 units 10/31/22 17:00 11/02/22 12:22 Insulin Aspart (*Bkc) 100 Units/Ml SUB-Q Not Given TIDWM BIPIN Protocol Insulin Human NPH 34 units 10/31/22 21:00 11/01/22 21:02 Insulin Human Nph (*Bkc) 100 Units/Ml SUB-Q 34 units HS BIPIN Administration Ondansetron HCl 4 mg 10/31/22 12:45 11/01/22 12:01 Ondansetron Inj 4 Mg/2 Ml Vial IV PUSH 4 mg Q4H PRN Administration Nausea Radiology Results: ITS Impressions Abdomen/Pelvis CT 10/31/22 12:05 IMPRESSION: 1. Ci
[2022-11-02 17:18] LABS: Glucose Point of Care 135 mg/dl (65-105)
[2022-11-02] MEDS: INSULIN HUMAN NPH (*BKC) 100 UNITS/ML 34 UNITS SUB-Q (20:22)
[2022-11-02 20:58] LABS: Glucose Point of Care 193 mg/dl (65-105)
[2022-11-02 21:10] VITALS: PULSE 61; O2SAT 92
[2022-11-02 21:27] VITALS: BP 157/70; PULSE 64; RESP 18; TEMP 36.4; O2SAT 95
[2022-11-02] MEDS: ONDANSETRON INJ 4 MG/2 ML VIAL IV PUSH (22:10)
[2022-11-03] MEDS: SODIUM CHLORIDE 0.9% IV 1,000 ML 125 ML IV CONT ×2 (00:55→08:44)
[2022-11-03 02:26] VITALS: PULSE 58; O2SAT 93
[2022-11-03 05:35] VITALS: BP 139/71; PULSE 62; RESP 14; TEMP 36.3; O2SAT 91
[2022-11-03 05:55] LABS: Basophils Percent Auto 0.5 % (0.2-1.2); Eosinophils Absolute Auto 0.1 K/mm3 (0-0.3); Eosinophils Percent Auto 1.9 % (0-4.4); Hematocrit 41.7 % (37.0-47.0); Hemoglobin 13.3 g/dL (12.0-15.0); Immature Granulocyte Absolute 0.03 K/mm3 (0.00-0.031); Immature Granulocyte Percent A 0.4 % (0-0.5); Lymphocytes Absolute Auto 1.35 K/mm3 (0.9-3.2); Lymphocytes Percent Auto 18.2 % (18.3-44.2); Mean Corpuscular HGB Conc 31.9 g/dl (32-36); Mean Corpuscular Hemoglobin 28.7 pg (26-34); Mean Corpuscular Volume 90.1 fl (80-100); Monocytes Absolute Auto 0.6 K/mm3 (0.1-0.6); Monocytes Percent Auto 7.7 % (2.6-8.5); Neutrophils Absolute Auto 5.3 K/mm3 (1.3-6.7); Neutrophils Percent Auto 71.3 % (45.5-73.1); Platelet Count Result 227 k/mm3 (150-375); Red Blood Count 4.63 M/mm3 (4.2-5.4); Red Cell Distribution Width 14.1 % (11.5-14.5); White Blood Count 7.4 K/mm3 (4.5-10.0)
[2022-11-03 06:08] LABS: Alanine Aminotransferase 378 U/L (6-35); Albumin Level 3.7 g/dL (3.5-5.1); Alkaline Phosphatase 450 U/L (38-126); Anion Gap 5 mmol/L (8-16); Aspartate Amino Transferase 412 U/L (14-36); Bilirubin,Total 1.1 mg/dL (0.2-1.3); Blood Urea Nitrogen 4 mg/dL (7-17); Calcium 9.2 mg/dL (8.4-10.2); Carbon Dioxide 27 mmol/L (22-30); Chloride 105 mmol/L (98-107); Estimated Glomerular Filt Rate > 60; Glucose 162 mg/dL (65-110); Lipase 1642 U/L (23-300); Potassium 3.4 mmol/L (3.4-5.0); Sodium 137 mmol/L (137-145)
[2022-11-03 07:39] LABS: Glucose Point of Care 174 mg/dl (65-105)
[2022-11-03 11:40] LABS: Glucose Point of Care 212 mg/dl (65-105)
--- NOTE | 2022-11-03 12:04 | PM.IMPN ---
Progress Note: A&P Assessment and Plan (1) Acute pancreatitis: Code(s): K85.90 - Acute pancreatitis without necrosis or infection, unspecified Status: Acute Assessment and Plan: IV fluids and pain control. MRCP noted. Await plan from GI (2) Dilated bile duct: Code(s): K83.8 - Other specified diseases of biliary tract Status: Acute Assessment and Plan: Await planned GI (3) Transaminitis: Code(s): R74.01 - Elevation of levels of liver transaminase levels Status: Acute Assessment and Plan: Patient has chronic liver disease, reportedly cirrhosis due to COELLO. Her LFTs are not typically this high however. She indicates that she had a blood test done not long ago ?for cancer? which came back a bit elevated however that is being monitored. Records requested from her GI specialist in [place]. (4) Cirrhosis: Code(s): K74.60 - Unspecified cirrhosis of liver Status: Acute Assessment and Plan: No evidence of decompensation. She has known varices with no history of bleeding. (5) Pulmonary nodules: Code(s): R91.8 - Other nonspecific abnormal finding of lung field Status: Acute Assessment and Plan: No history to suggest active pulmonary infection. Radiologist recommends repeat CT in several months. (6) Abnormal urinalysis: Code(s): R82.90 - Unspecified abnormal findings in urine Status: Inactive Assessment and Plan: No symptoms to suggest UTI. (7) Kidney stones: Code(s): N20.0 - Calculus of kidney Status: Acute Assessment and Plan: 5 millimeter right kidney stone noted on imaging. Not currently causing issues. (8) Type 2 diabetes mellitus: Code(s): E11.9 - Type 2 diabetes mellitus without complications Status: Acute Assessment and Plan: Hold basal insulin and glimepiride as she is NPO and has not been eating well. Initiate sliding scale insulin, Accu-Cheks, and hypoglycemic protocol. Check hemoglobin A1c. (9) Hypertension: Code(s): I10 - Essential (primary) hypertension Status: Acute Assessment and Plan: Blood pressures were reviewed and they are stable. (10) Pulmonary nodule: Code(s): R91.1 - Solitary pulmonary nodule Status: Acute Assessment and Plan: Follow-up CT scan in 6 months (11) Liver mass: Code(s): R16.0 - Hepatomegaly, not elsewhere classified Status: Acute Assessment and Plan: Follow-up MR and in 3 to 6 month Subjective Date/time seen: 11/03/22 12:04 No new complaints. Abdominal pain about the same or better. Tolerating liquid diet Exam Narrative: General: Mildly ill-appearing female in the semi-Bang position in bed. Weight: 90 kilograms. HEENT: Wearing glasses. PERRL, EOMI. Sclera anicteric. Tacky mucous membranes. Neck: Supple. Respiratory: Lungs are clear to auscultation bilaterally. Cardiovascular: Regular rate and rhythm with S1-S2. Gastrointestinal: Abdomen is soft and nondistended with positive bowel sounds. She is tender to palpation epigastric region more so in the left upper quadrant. No guarding or rebound tenderness. Skin: Warm and dry. No rash or lesions on limited exam. Extremities: No cyanosis, clubbing, or edema. Radial and pedal pulses intact. Neurological: Alert. Cranial nerves 2-12 are grossly intact. No gross focal deficits to casual conversation. Psychiatric: Pleasant and cooperative with normal mood and affect. Judgment and insight intact. Objective Data Vital Signs Vital Signs: Vital Signs - 24 hr 11/02/22 14:00 11/02/22 21:10 11/02/22 21:10 Temperature 97.2 F L Pulse Rate 62 61 Respiratory Rate 16 Blood Pressure 167/81 H Pulse Oximetry 95 92 92 Oxygen Delivery CPAP CPAP Fraction of Inspired Oxygen 21 11/02/22 21:27 11/02/22 20:00 11/03/22 02:26 Temperature 97.5 F L Pulse Rate 64 58 L Respiratory Rate 18
[2022-11-03] MEDS: INSULIN ASPART (*BKC) 100 UNITS/ML SUB-Q (12:19)
[2022-11-03] MEDS: allopurinoL 300 MG TABLET PO (12:19)
[2022-11-03] MEDS: ACIDOPHILUS/BULGARICUS CHEWABLE TABLET 1 TABLET PO (12:19)
[2022-11-03] MEDS: SERTRALINE HCL 50 MG TABLET 100 MG PO (12:19)
[2022-11-03] MEDS: ATORVASTATIN 40 MG TABLET PO (12:19)
[2022-11-03] MEDS: SERTRALINE HCL 50 MG TABLET PO (12:19)
[2022-11-03 14:00] VITALS: BP 150/75; PULSE 60; RESP 20; TEMP 36; O2SAT 95
--- NOTE | 2022-11-03 15:16 | WPDGIPROGNO ---
Progress Note: A&P Assessment and Plan (1) Acute pancreatitis: Code(s): K85.90 - Acute pancreatitis without necrosis or infection, unspecified Status: Acute Assessment and Plan: advance diet to low fat as tolerated (2) Liver cirrhosis secondary to COELLO: Code(s): K75.81 - Nonalcoholic steatohepatitis (COELLO); K74.60 - Unspecified cirrhosis of liver Status: Acute Assessment and Plan: seeing by hepatology radiologist recommended to repeat MRI liver in 3-6 months, AFP level pending (3) Transaminitis: Code(s): R74.01 - Elevation of levels of liver transaminase levels Status: Acute Assessment and Plan: she already had elevated transaminases at baseline, now higher in setting of pancreatitis no major changes mrcp reviewed (4) Dilated bile duct: Code(s): K83.8 - Other specified diseases of biliary tract Status: Acute Assessment and Plan: mrcp no stones or lesion in bile duct Subjective Date/time seen: 11/03/22 15:16 Interval history: still some nausea, no major changes Review of Systems Review of Systems: All systems reviewed & are unremarkable except as noted in HPI and below Exam Narrative: General: good spirits and reading a book, comfortable HEENT: Wearing glasses. PERRL, EOMI. Sclera anicteric. Neck: Supple. Respiratory: Lungs are clear to auscultation bilaterally. Cardiovascular: Regular rate and rhythm with S1-S2. Gastrointestinal: Abdomen is soft and nondistended with positive bowel sounds. No guarding or rebound tenderness. Skin: Warm and dry. No rash. Extremities: No cyanosis, clubbing, or edema. Neurological: Alert. Cranial nerves 2-12 are grossly intact. No gross focal deficits to casual conversation. Psychiatric: Pleasant and cooperative with normal mood and affect. Judgment and insight intact. Objective Data Vital Signs Vital Signs: Vital Signs - 24 hr 11/02/22 21:10 11/02/22 21:10 11/02/22 21:27 Temperature 97.5 F L Pulse Rate 61 64 Respiratory Rate 18 Blood Pressure 157/70 H Pulse Oximetry 92 92 95 Oxygen Delivery CPAP CPAP Fraction of Inspired Oxygen 21 11/02/22 20:00 11/03/22 02:26 11/03/22 05:35 Temperature 97.3 F L Pulse Rate 58 L 62 Respiratory Rate 14 Blood Pressure 139/71 Pulse Oximetry 93 91 Oxygen Delivery Room Air CPAP Fraction of Inspired Oxygen 11/03/22 08:40 11/03/22 14:00 Temperature 96.8 F L Pulse Rate 60 Respiratory Rate 20 Blood Pressure 150/75 H Pulse Oximetry 95 Oxygen Delivery Room Air Fraction of Inspired Oxygen Intake/Output Intake/Output: Intake & Output 10/31/22 11/01/22 11/02/22 11/03/22 23:59 23:59 23:59 23:59 Intake Total 1000 1500 4770 3108 Output Total 200 Balance 800 1500 4770 3108 Meds/Results Medications: Active Medications Generic Name Dose Route Start Last Admin Trade Name Freq PRN Reason Stop Dose Admin Allopurinol 300 mg 11/03/22 11:00 11/03/22 12:19 Allopurinol 300 Mg Tablet PO 300 mg DAILY BIPIN Administration Atorvastatin Calcium 40 mg 11/03/22 11:00 11/03/22 12:19 Atorvastatin 40 Mg Tablet PO 40 mg DAILY BIPIN Administration Dextrose 12.5 gm 10/31/22 15:49 Dextrose 50% 25 Gm/50 Ml Syringe IV PUSH PRN PRN Hypoglycemia Protocol Glucagon 1 mg 10/31/22 15:49 Glucagon For Inj 1 Mg Vial IM PRN PRN Hypoglycemia Protocol Glucose 15 gm 10/31/22 15:49 Glucose Oral Gel 15 Gm Of Glucse In 37.5 Gm Tube PO PRN PRN Hypoglycemia Protocol Hydromorphone HCl 0.5 mg 10/31/22 15:55 Hydromorphone Hcl Inj (*Crx) 1 Mg/Ml Syr IV PUSH Q4H PRN Pain Rated 7-10 Sodium Chloride 1,000 mls @ 125 mls/hr 10/31/22 12:45 11/03/22 14:16 Normal Saline Iv IV CONT Not Given .Q8H BIPIN Dextrose 1,000 mls @ 100 mls/hr 10/31/22 15:49 Dextrose 5% 1,000 Ml IVPB PRN PRN Hypoglycemia Protocol Insulin A
[2022-11-03 16:48] LABS: Glucose Point of Care 180 mg/dl (65-105)
[2022-11-03 19:58] LABS: Glucose Point of Care 201 mg/dl (65-105)
[2022-11-03] MEDS: INSULIN HUMAN NPH (*BKC) 100 UNITS/ML 34 UNITS SUB-Q (21:47)
[2022-11-03 21:53] VITALS: PULSE 62; O2SAT 96
[2022-11-03 21:56] VITALS: BP 145/76; PULSE 62; RESP 14; TEMP 35.9; O2SAT 98
[2022-11-04 02:40] VITALS: PULSE 60; O2SAT 96
--- NOTE | 2022-11-04 05:21 | PC.NURSE ---
Patient rested throughout night. No s/s of pain or discomfort noted or reported during shift. Patient VSS and compliant with cpap from home. Patient otherwise rested well without any changes.
[2022-11-04 06:00] VITALS: BP 144/81; PULSE 68; RESP 12; TEMP 36.9; O2SAT 97
[2022-11-04 07:16] LABS: Alanine Aminotransferase 423 U/L (6-35); Alkaline Phosphatase 534 U/L (38-126); Anion Gap 6 mmol/L (8-16); Aspartate Amino Transferase 520 U/L (14-36); Bilirubin,Total 1.8 mg/dL (0.2-1.3); Blood Urea Nitrogen 7 mg/dL (7-17); Calcium 9.5 mg/dL (8.4-10.2); Carbon Dioxide 27 mmol/L (22-30); Chloride 105 mmol/L (98-107); Estimated Glomerular Filt Rate > 60; Glucose 185 mg/dL (65-110); Lipase 1435 U/L (23-300); Potassium 3.2 mmol/L (3.4-5.0); Sodium 138 mmol/L (137-145)
[2022-11-04 08:23] LABS: Glucose Point of Care 198 mg/dl (65-105)
[2022-11-04] MEDS: ONDANSETRON INJ 4 MG/2 ML VIAL IV PUSH (08:34)
[2022-11-04 12:00] LABS: Glucose Point of Care 217 mg/dl (65-105)
--- NOTE | 2022-11-04 13:34 | PM.IMPN ---
Progress Note: A&P Assessment and Plan (1) Acute pancreatitis: Code(s): K85.90 - Acute pancreatitis without necrosis or infection, unspecified Status: Acute Assessment and Plan: IV fluids and pain control. MRCP noted. Await plan from GI Will check IgG4 (2) Dilated bile duct: Code(s): K83.8 - Other specified diseases of biliary tract Status: Acute Assessment and Plan: Await planned GI (3) Transaminitis: Code(s): R74.01 - Elevation of levels of liver transaminase levels Status: Acute Assessment and Plan: Patient has chronic liver disease, reportedly cirrhosis due to COELLO. Her LFTs are not typically this high however. She indicates that she had a blood test done not long ago ?for cancer? which came back a bit elevated however that is being monitored. Records requested from her GI specialist in [place]. (4) Cirrhosis: Code(s): K74.60 - Unspecified cirrhosis of liver Status: Acute Assessment and Plan: No evidence of decompensation. She has known varices with no history of bleeding. (5) Pulmonary nodules: Code(s): R91.8 - Other nonspecific abnormal finding of lung field Status: Acute Assessment and Plan: No history to suggest active pulmonary infection. Radiologist recommends repeat CT in several months. (6) Abnormal urinalysis: Code(s): R82.90 - Unspecified abnormal findings in urine Status: Inactive Assessment and Plan: No symptoms to suggest UTI. (7) Kidney stones: Code(s): N20.0 - Calculus of kidney Status: Acute Assessment and Plan: 5 millimeter right kidney stone noted on imaging. Not currently causing issues. (8) Type 2 diabetes mellitus: Code(s): E11.9 - Type 2 diabetes mellitus without complications Status: Acute Assessment and Plan: Hold basal insulin and glimepiride as she is NPO and has not been eating well. Initiate sliding scale insulin, Accu-Cheks, and hypoglycemic protocol. Check hemoglobin A1c. (9) Hypertension: Code(s): I10 - Essential (primary) hypertension Status: Acute Assessment and Plan: Blood pressures were reviewed and they are stable. (10) Pulmonary nodule: Code(s): R91.1 - Solitary pulmonary nodule Status: Acute Assessment and Plan: Follow-up CT scan in 6 months (11) Liver mass: Code(s): R16.0 - Hepatomegaly, not elsewhere classified Status: Acute Assessment and Plan: Follow-up MR and in 3 to 6 month Subjective Date/time seen: 11/04/22 13:34 No complaints Exam Narrative: General: Mildly ill-appearing female in the semi-Bang position in bed. Weight: 90 kilograms. HEENT: Wearing glasses. PERRL, EOMI. Sclera anicteric. Tacky mucous membranes. Neck: Supple. Respiratory: Lungs are clear to auscultation bilaterally. Cardiovascular: Regular rate and rhythm with S1-S2. Gastrointestinal: Abdomen is soft and nondistended with positive bowel sounds. She is tender to palpation epigastric region more so in the left upper quadrant. No guarding or rebound tenderness. Skin: Warm and dry. No rash or lesions on limited exam. Extremities: No cyanosis, clubbing, or edema. Radial and pedal pulses intact. Neurological: Alert. Cranial nerves 2-12 are grossly intact. No gross focal deficits to casual conversation. Psychiatric: Pleasant and cooperative with normal mood and affect. Judgment and insight intact. Objective Data Vital Signs Vital Signs: Vital Signs - 24 hr 11/03/22 14:00 11/03/22 21:56 11/03/22 21:53 Temperature 96.8 F L 96.7 F L Pulse Rate 60 62 Respiratory Rate 20 14 Blood Pressure 150/75 H 145/76 H Pulse Oximetry 95 98 96 Oxygen Delivery CPAP Fraction of Inspired Oxygen 21 11/03/22 21:53 11/04/22 02:40 11/04/22 06:00 Temperature 98.5 F Pulse Rate 62 60 68 Respiratory Rate 12 Blood Pressure 144/81 H Pulse Oximetry
[2022-11-04 14:00] VITALS: BP 144/77; PULSE 66; RESP 14; TEMP 36.1; O2SAT 95
[2022-11-04] MEDS: POTASSIUM CHLORIDE 20 MEQ TABLET 40 MEQ PO (14:17)
[2022-11-04] MEDS: SERTRALINE HCL 50 MG TABLET PO (14:18)
[2022-11-04] MEDS: ATORVASTATIN 40 MG TABLET PO (14:18)
[2022-11-04] MEDS: allopurinoL 300 MG TABLET PO (14:18)
[2022-11-04] MEDS: ACIDOPHILUS/BULGARICUS CHEWABLE TABLET 1 TABLET PO (14:18)
[2022-11-04] MEDS: SERTRALINE HCL 50 MG TABLET 100 MG PO (14:18)
[2022-11-04] MEDS: SODIUM CHLORIDE 0.9% IV 1,000 ML 75 ML IV CONT (14:18)
[2022-11-04] MEDS: INSULIN ASPART (*BKC) 100 UNITS/ML SUB-Q ×2 (14:22→17:16)
--- NOTE | 2022-11-04 15:30 | WPDGIPROGNO ---
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: Code(s): K75.81 - Nonalcoholic steatohepatitis (COELLO); K74.60 - Unspecified cirrhosis of liver Status: Acute Assessment and Plan: seeing by hepatology in [place] radiologist recommended to repeat MRI liver in 3-6 months, AFP level still pending (3) Transaminitis: Code(s): R74.01 - Elevation of levels of liver transaminase levels Status: Acute Assessment and Plan: she already had elevated transaminases at baseline, now higher in setting of pancreatitis and probably will take some time before going down mrcp reviewed (4) Dilated bile duct: Code(s): K83.8 - Other specified diseases of biliary tract Status: Acute Assessment and Plan: mrcp no stones or lesion in bile duct Subjective Date/time seen: 11/04/22 15:30 Interval history: some nausea but better now Review of Systems Review of Systems: All systems reviewed & are unremarkable except as noted in HPI and below Exam Narrative: General: good spirits and reading a book, comfortable HEENT: Wearing glasses. PERRL, EOMI. Sclera anicteric. Neck: Supple. Respiratory: Lungs are clear to auscultation bilaterally. Cardiovascular: Regular rate and rhythm with S1-S2. Gastrointestinal: Abdomen is soft and nondistended with positive bowel sounds. No guarding or rebound tenderness. Skin: Warm and dry. No rash. Extremities: No cyanosis, clubbing, or edema. Neurological: Alert. Cranial nerves 2-12 are grossly intact. No gross focal deficits to casual conversation. Psychiatric: Pleasant and cooperative with normal mood and affect. Judgment and insight intact. Objective Data Vital Signs Vital Signs: Vital Signs - 24 hr 11/03/22 21:56 11/03/22 21:53 11/03/22 21:53 Temperature 96.7 F L Pulse Rate 62 62 Respiratory Rate 14 Blood Pressure 145/76 H Pulse Oximetry 98 96 96 Oxygen Delivery CPAP CPAP Fraction of Inspired Oxygen 21 11/04/22 02:40 11/04/22 06:00 11/04/22 14:00 Temperature 98.5 F 97 F L Pulse Rate 60 68 66 Respiratory Rate 12 14 Blood Pressure 144/81 H 144/77 H Pulse Oximetry 96 97 95 Oxygen Delivery CPAP Fraction of Inspired Oxygen Intake/Output Intake/Output: Intake & Output 11/01/22 11/02/22 11/03/22 11/04/22 23:59 23:59 23:59 23:59 Intake Total 1500 4770 3508 50 Balance 1500 4770 3508 50 Meds/Results Medications: Active Medications Generic Name Dose Route Start Last Admin Trade Name Freq PRN Reason Stop Dose Admin Allopurinol 300 mg 11/03/22 11:00 11/04/22 14:18 Allopurinol 300 Mg Tablet PO 300 mg DAILY BIPIN Administration Atorvastatin Calcium 40 mg 11/03/22 11:00 11/04/22 14:18 Atorvastatin 40 Mg Tablet PO 40 mg DAILY BIPIN Administration Dextrose 12.5 gm 10/31/22 15:49 Dextrose 50% 25 Gm/50 Ml Syringe IV PUSH PRN PRN Hypoglycemia Protocol Glucagon 1 mg 10/31/22 15:49 Glucagon For Inj 1 Mg Vial IM PRN PRN Hypoglycemia Protocol Glucose 15 gm 10/31/22 15:49 Glucose Oral Gel 15 Gm Of Glucse In 37.5 Gm Tube PO PRN PRN Hypoglycemia Protocol Hydromorphone HCl 0.5 mg 10/31/22 15:55 Hydromorphone Hcl Inj (*Crx) 1 Mg/Ml Syr IV PUSH Q4H PRN Pain Rated 7-10 Dextrose 1,000 mls @ 100 mls/hr 10/31/22 15:49 Dextrose 5% 1,000 Ml IVPB PRN PRN Hypoglycemia Protocol Sodium Chloride 1,000 mls @ 75 mls/hr 11/04/22 11:40 11/04/22 14:18 Normal Saline Iv IV CONT 75 mls/hr .[id number] BIPIN Administration Insulin Aspart 2 - 5 units 10/31/22 17:00 11/04/22 14:22 Insulin Aspart (*Bkc) 100 Units/Ml SUB-Q 2 units TIDWM BIPIN Administrat
[2022-11-04 17:14] LABS: Glucose Point of Care 224 mg/dl (65-105)
[2022-11-04 21:49] LABS: Glucose Point of Care 329 mg/dl (65-105)
[2022-11-04] MEDS: INSULIN HUMAN NPH (*BKC) 100 UNITS/ML 34 UNITS SUB-Q (21:52)
[2022-11-04 22:00] VITALS: BP 150/73; PULSE 68; RESP 18; TEMP 36.4; O2SAT 93
--- NOTE | 2022-11-05 00:42 | PC.NURSE ---
Patient insistent that her IVFs be stopped before she puts her cpap on and retires for the night. Patient states otherwise she will get no sleep with those running. This RN and previous RN attempted to educate patient on benefits of having them run overnight before her Labs were drawn and patient not receptive to this and desires that they still be shut off. Dr. Hutson agreed with patient's choices and IVFs had only about 300 wasted. Patient otherwise stable and unchanged.
[2022-11-05 06:00] VITALS: BP 151/72; PULSE 66; RESP 17; TEMP 36.5; O2SAT 94
[2022-11-05] MEDS: ONDANSETRON INJ 4 MG/2 ML VIAL IV PUSH (06:13)
--- NOTE | 2022-11-05 06:35 | PC.NURSE ---
Patient calling out to report bout of nausea without emesis at this time. Patient given zofran and restarted IVFs with good results. Patient voicing no pain but states it feels like a tight band around her abdominal girth. Patient denied need for pain medication. Will continue to monitor patient's status. Otherwise patient condition is stable and unchanged.
[2022-11-05 07:01] LABS: Alanine Aminotransferase 451 U/L (6-35); Alkaline Phosphatase 553 U/L (38-126); Anion Gap 7 mmol/L (8-16); Aspartate Amino Transferase 544 U/L (14-36); Bilirubin,Total 1.9 mg/dL (0.2-1.3); Blood Urea Nitrogen 7 mg/dL (7-17); Calcium 9.4 mg/dL (8.4-10.2); Carbon Dioxide 28 mmol/L (22-30); Chloride 102 mmol/L (98-107); Estimated Glomerular Filt Rate > 60; Glucose 192 mg/dL (65-110); Lipase 1420 U/L (23-300); Potassium 3.1 mmol/L (3.4-5.0); Sodium 137 mmol/L (137-145)
[2022-11-05] MEDS: HYDROmorphone HCL INJ (*CRX) 1 MG/ML SYR 0.5 MG IV PUSH (07:46)
[2022-11-05 08:28] LABS: Glucose Point of Care 195 mg/dl (65-105)
[2022-11-05] MEDS: POTASSIUM CHLORIDE INJ 40 MEQ in SODIUM CHLORIDE 0.9% IV 500 ML 130 MEQ IVPB (09:04)
[2022-11-05] MEDS: ATORVASTATIN 40 MG TABLET PO (09:27)
[2022-11-05] MEDS: allopurinoL 300 MG TABLET PO (09:27)
[2022-11-05] MEDS: SERTRALINE HCL 50 MG TABLET 100 MG PO (09:27)
[2022-11-05] MEDS: ACIDOPHILUS/BULGARICUS CHEWABLE TABLET 1 TABLET PO (09:27)
[2022-11-05] MEDS: SERTRALINE HCL 50 MG TABLET PO (09:31)
[2022-11-05] MEDS: POTASSIUM CHLORIDE 20 MEQ TABLET 40 MEQ PO ×2 (10:02→16:53)
[2022-11-05] MEDS: SODIUM CHLORIDE 0.9% IV 1,000 ML 75 ML IV CONT ×2 (11:12→22:05)
[2022-11-05 11:37] LABS: Glucose Point of Care 207 mg/dl (65-105)
[2022-11-05] MEDS: INSULIN ASPART (*BKC) 100 UNITS/ML SUB-Q ×2 (12:09→16:53)
--- NOTE | 2022-11-05 12:09 | WPDGIPROGNO ---
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: Code(s): K75.81 - Nonalcoholic steatohepatitis (COELLO); K74.60 - Unspecified cirrhosis of liver Status: Acute Assessment and Plan: seeing by hepatology in [place] radiologist recommended to repeat MRI liver in 3-6 months, AFP level still pending (3) Transaminitis: Code(s): R74.01 - Elevation of levels of liver transaminase levels Status: Acute Assessment and Plan: she already had elevated transaminases at baseline, now higher in setting of pancreatitis and probably will take some time before going down mrcp reviewed (4) Dilated bile duct: Code(s): K83.8 - Other specified diseases of biliary tract Status: Acute Assessment and Plan: mrcp no stones or lesion in bile duct Subjective Date/time seen: 11/05/22 12:09 Interval history: still with nausea and earlier this morning required pain med (first time asking for), now she is eating but not ready to go home Review of Systems Review of Systems: All systems reviewed & are unremarkable except as noted in HPI and below Exam Narrative: General: comfortable HEENT: Wearing glasses. PERRL, EOMI. Sclera anicteric. Neck: Supple. Respiratory: Lungs are clear to auscultation bilaterally. Cardiovascular: Regular rate and rhythm with S1-S2. Gastrointestinal: Abdomen is soft and nondistended with positive bowel sounds. No guarding or rebound tenderness. Skin: Warm and dry. No rash. Extremities: No cyanosis, clubbing, or edema. Neurological: Alert. Cranial nerves 2-12 are grossly intact. No gross focal deficits to casual conversation. Psychiatric: Pleasant and cooperative with normal mood and affect. Judgment and insight intact. Objective Data Vital Signs Vital Signs: Vital Signs - 24 hr 11/04/22 14:00 11/04/22 22:00 11/05/22 06:00 Temperature 97 F L 97.6 F 97.7 F Pulse Rate 66 68 66 Respiratory Rate 14 18 17 Blood Pressure 144/77 H 150/73 H 151/72 H Pulse Oximetry 95 93 94 Oxygen Delivery 11/05/22 08:00 Temperature Pulse Rate Respiratory Rate Blood Pressure Pulse Oximetry Oxygen Delivery Room Air Intake/Output Intake/Output: Intake & Output 11/02/22 11/03/22 11/04/22 11/05/22 23:59 23:59 23:59 23:59 Intake Total 4770 3508 1370 260 Balance 4770 3508 1370 260 Meds/Results Medications: Active Medications Generic Name Dose Route Start Last Admin Trade Name Freq PRN Reason Stop Dose Admin Allopurinol 300 mg 11/03/22 11:00 11/05/22 09:27 Allopurinol 300 Mg Tablet PO 300 mg DAILY BIPIN Administration Atorvastatin Calcium 40 mg 11/03/22 11:00 11/05/22 09:27 Atorvastatin 40 Mg Tablet PO 40 mg DAILY BIPIN Administration Dextrose 12.5 gm 10/31/22 15:49 Dextrose 50% 25 Gm/50 Ml Syringe IV PUSH PRN PRN Hypoglycemia Protocol Glucagon 1 mg 10/31/22 15:49 Glucagon For Inj 1 Mg Vial IM PRN PRN Hypoglycemia Protocol Glucose 15 gm 10/31/22 15:49 Glucose Oral Gel 15 Gm Of Glucse In 37.5 Gm Tube PO PRN PRN Hypoglycemia Protocol Hydromorphone HCl 0.5 mg 10/31/22 15:55 11/05/22 07:46 Hydromorphone Hcl Inj (*Crx) 1 Mg/Ml Syr IV PUSH 0.5 mg Q4H PRN Administration Pain Rated 7-10 Dextrose 1,000 mls @ 100 mls/hr 10/31/22 15:49 Dextrose 5% 1,000 Ml IVPB PRN PRN Hypoglycemia Protocol Sodium Chloride 1,000 mls @ 75 mls/hr 11/04/22 11:40 11/05/22 11:12 Normal Saline Iv IV CONT 75 mls/hr .[id number] BIPIN Administration Insulin Aspart 2 - 5 units 10/31/22 17:00 11/05/22 09:28 Insulin Aspart (*Bkc) 100 Units/Ml SUB-Q Not Given TIDWM [facility] Protocol Insulin Human NPH
--- NOTE | 2022-11-05 13:53 | PM.IMPN ---
Progress Note: A&P Assessment and Plan (1) Acute pancreatitis: Code(s): K85.90 - Acute pancreatitis without necrosis or infection, unspecified Status: Acute Assessment and Plan: IV fluids and pain control. MRCP noted. Await plan from GI Will check IgG4 (2) Dilated bile duct: Code(s): K83.8 - Other specified diseases of biliary tract Status: Acute Assessment and Plan: Await planned GI (3) Transaminitis: Code(s): R74.01 - Elevation of levels of liver transaminase levels Status: Acute Assessment and Plan: Patient has chronic liver disease, reportedly cirrhosis due to COELLO. Her LFTs are not typically this high however. She indicates that she had a blood test done not long ago ?for cancer? which came back a bit elevated however that is being monitored. Records requested from her GI specialist in [place]. (4) Cirrhosis: Code(s): K74.60 - Unspecified cirrhosis of liver Status: Acute Assessment and Plan: No evidence of decompensation. She has known varices with no history of bleeding. (5) Pulmonary nodules: Code(s): R91.8 - Other nonspecific abnormal finding of lung field Status: Acute Assessment and Plan: No history to suggest active pulmonary infection. Radiologist recommends repeat CT in several months. (6) Abnormal urinalysis: Code(s): R82.90 - Unspecified abnormal findings in urine Status: Inactive Assessment and Plan: No symptoms to suggest UTI. (7) Kidney stones: Code(s): N20.0 - Calculus of kidney Status: Acute Assessment and Plan: 5 millimeter right kidney stone noted on imaging. Not currently causing issues. (8) Type 2 diabetes mellitus: Code(s): E11.9 - Type 2 diabetes mellitus without complications Status: Acute Assessment and Plan: Hold basal insulin and glimepiride as she is NPO and has not been eating well. Initiate sliding scale insulin, Accu-Cheks, and hypoglycemic protocol. Check hemoglobin A1c. (9) Hypertension: Code(s): I10 - Essential (primary) hypertension Status: Acute Assessment and Plan: Blood pressures were reviewed and they are stable. (10) Pulmonary nodule: Code(s): R91.1 - Solitary pulmonary nodule Status: Acute Assessment and Plan: Follow-up CT scan in 6 months (11) Liver mass: Code(s): R16.0 - Hepatomegaly, not elsewhere classified Status: Acute Assessment and Plan: Follow-up MR and in 3 to 6 month Subjective Date/time seen: 11/05/22 13:53 Still having pain, lipase improved Exam Narrative: General: Mildly ill-appearing female in the semi-Bang position in bed. Weight: 90 kilograms. HEENT: Wearing glasses. PERRL, EOMI. Sclera anicteric. Tacky mucous membranes. Neck: Supple. Respiratory: Lungs are clear to auscultation bilaterally. Cardiovascular: Regular rate and rhythm with S1-S2. Gastrointestinal: Abdomen is soft and nondistended with positive bowel sounds. She is tender to palpation epigastric region more so in the left upper quadrant. No guarding or rebound tenderness. Skin: Warm and dry. No rash or lesions on limited exam. Extremities: No cyanosis, clubbing, or edema. Radial and pedal pulses intact. Neurological: Alert. Cranial nerves 2-12 are grossly intact. No gross focal deficits to casual conversation. Psychiatric: Pleasant and cooperative with normal mood and affect. Judgment and insight intact. Objective Data Vital Signs Vital Signs: Vital Signs - 24 hr 11/04/22 14:00 11/04/22 22:00 11/05/22 06:00 Temperature 97 F L 97.6 F 97.7 F Pulse Rate 66 68 66 Respiratory Rate 14 18 17 Blood Pressure 144/77 H 150/73 H 151/72 H Pulse Oximetry 95 93 94 Oxygen Delivery 11/05/22 08:00 Temperature Pulse Rate Respiratory Rate Blood Pressure Pulse Oximetry Oxygen Delivery Room Air Intake/Output Intake/Output:
[2022-11-05 14:00] VITALS: BP 151/76; PULSE 68; RESP 16; TEMP 36.3; O2SAT 91
[2022-11-05 16:15] LABS: Glucose Point of Care 208 mg/dl (65-105)
[2022-11-05 21:32] LABS: Glucose Point of Care 244 mg/dl (65-105)
[2022-11-05 22:00] VITALS: BP 142/63; PULSE 65; RESP 18; TEMP 36.4; O2SAT 93
[2022-11-05] MEDS: INSULIN HUMAN NPH (*BKC) 100 UNITS/ML 34 UNITS SUB-Q (22:06)
[2022-11-06 00:13] VITALS: PULSE 65; O2SAT 94
--- NOTE | 2022-11-06 05:24 | PC.NURSE ---
Patient still refusing IVFs overnight. Voicing no other complaints throughout night. Condition remains stable. No nausea or pain reported or observed. Patient stable and unchanged.
[2022-11-06 05:32] VITALS: PULSE 60; O2SAT 93
[2022-11-06 06:00] VITALS: BP 151/73; PULSE 60; RESP 16; TEMP 36.9; O2SAT 93
[2022-11-06 07:03] LABS: Lipase 1472 U/L (23-300)
[2022-11-06 08:11] LABS: Glucose Point of Care 185 mg/dl (65-105)
[2022-11-06 08:59] LABS: Mean Corpuscular HGB Conc 31.7 g/dl (32-36); Mean Corpuscular Hemoglobin 29.1 pg (26-34); Mean Corpuscular Volume 91.7 fl (80-100); Mean Platelet Volume 11.7 fl (7.4-10.4); Platelet Count Result 233 k/mm3 (150-375); Red Blood Count 4.47 M/mm3 (4.2-5.4); Red Cell Distribution Width 14.5 % (11.5-14.5); White Blood Count 7.7 K/mm3 (4.5-10.0)
[2022-11-06 09:54] LABS: Anion Gap 9 mmol/L (8-16); Blood Urea Nitrogen 7 mg/dL (7-17); Calcium 9.3 mg/dL (8.4-10.2); Carbon Dioxide 24 mmol/L (22-30); Chloride 106 mmol/L (98-107); Estimated Glomerular Filt Rate > 60; Glucose 186 mg/dL (65-110); Potassium 3.6 mmol/L (3.4-5.0); Sodium 139 mmol/L (137-145)
[2022-11-06] MEDS: SERTRALINE HCL 50 MG TABLET 100 MG PO (10:12)
[2022-11-06] MEDS: ACIDOPHILUS/BULGARICUS CHEWABLE TABLET 1 TABLET PO (10:12)
[2022-11-06] MEDS: allopurinoL 300 MG TABLET PO (10:12)
[2022-11-06] MEDS: ATORVASTATIN 40 MG TABLET PO (10:12)
[2022-11-06] MEDS: SERTRALINE HCL 50 MG TABLET PO (10:14)
[2022-11-06 12:07] LABS: Glucose Point of Care 216 mg/dl (65-105)
--- NOTE | 2022-11-06 12:09 | PM.DS ---
DS: Admitting Diagnosis Discharge Date November 06, 2022 Admitting Diagnosis Pancreatitis DS: Discharge Diagnosis Discharge Diagnosis (1) Acute pancreatitis: Code(s): K85.90 - Acute pancreatitis without necrosis or infection, unspecified Status: Acute Assessment and Plan: IV fluids and pain control. MRCP noted. Await plan from GI Will check IgG4 (2) Dilated bile duct: Code(s): K83.8 - Other specified diseases of biliary tract Status: Acute Assessment and Plan: Await planned GI (3) Transaminitis: Code(s): R74.01 - Elevation of levels of liver transaminase levels Status: Acute Assessment and Plan: Patient has chronic liver disease, reportedly cirrhosis due to COELLO. Her LFTs are not typically this high however. She indicates that she had a blood test done not long ago ?for cancer? which came back a bit elevated however that is being monitored. Records requested from her GI specialist in [place]. (4) Cirrhosis: Code(s): K74.60 - Unspecified cirrhosis of liver Status: Acute Assessment and Plan: No evidence of decompensation. She has known varices with no history of bleeding. (5) Pulmonary nodules: Code(s): R91.8 - Other nonspecific abnormal finding of lung field Status: Acute Assessment and Plan: No history to suggest active pulmonary infection. Radiologist recommends repeat CT in several months. (6) Abnormal urinalysis: Code(s): R82.90 - Unspecified abnormal findings in urine Status: Inactive Assessment and Plan: No symptoms to suggest UTI. (7) Kidney stones: Code(s): N20.0 - Calculus of kidney Status: Acute Assessment and Plan: 5 millimeter right kidney stone noted on imaging. Not currently causing issues. (8) Type 2 diabetes mellitus: Code(s): E11.9 - Type 2 diabetes mellitus without complications Status: Acute Assessment and Plan: Hold basal insulin and glimepiride as she is NPO and has not been eating well. Initiate sliding scale insulin, Accu-Cheks, and hypoglycemic protocol. Check hemoglobin A1c. (9) Hypertension: Code(s): I10 - Essential (primary) hypertension Status: Acute Assessment and Plan: Blood pressures were reviewed and they are stable. (10) Pulmonary nodule: Code(s): R91.1 - Solitary pulmonary nodule Status: Acute Assessment and Plan: Follow-up CT scan in 6 months (11) Liver mass: Code(s): R16.0 - Hepatomegaly, not elsewhere classified Status: Acute Assessment and Plan: Follow-up MR and in 3 to 6 month DS: Summary Hospital Course Hospital Course: Patient is a 67-year-old female history of COELLO. Came in with elevated lipase pancreatitis and also elevated liver enzymes. No stone was identified and patient's treated conservatively. She does have some elevation of her lipase which may end up being somewhat chronic. She is able tolerate diet. GI did state consult the patient recommended no further evaluation. She does have some pending tests that will need to be followed up by her primary care physician or by her GI specialist in [place]. This includes IgG4 levels and also alpha fetoprotein levels. To note patient does have a kidney stone which is likely not contributing to her pain. She also noted to have some potential lesions on her liver which will need to be followed up with with an MR I of her liver in 3-6 monts. Also patient had some pulmonary nodules which only follow-up CT scan in about 3-6 months. Nonsmoker no respiratory symptoms. Time Spent with Patient Time attestation: Total time spent providing and/or coordinating discharge services: Exam Narrative: General: Mildly ill-appearing female in the semi-Bang position in bed. Weight: 90 kilograms. HEENT: Wearing glasses. PERRL, EOMI. Sclera anicteric. Tacky mucous membranes. Neck: Supple. Respirat
[2022-11-06] MEDS: INSULIN ASPART (*BKC) 100 UNITS/ML SUB-Q (12:37)
[2022-11-06 14:00] VITALS: BP 142/70; PULSE 71; RESP 16; TEMP 36.4; O2SAT 98
--- NOTE | 2022-11-06 15:30 | WPDGIPROGNO ---
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: Code(s): K75.81 - Nonalcoholic steatohepatitis (COELLO); K74.60 - Unspecified cirrhosis of liver Status: Acute Assessment and Plan: will follow-up with her inside wireman in [place] radiologist recommended to repeat MRI liver in 3-6 months, AFP level still pending (3) Transaminitis: Code(s): R74.01 - Elevation of levels of liver transaminase levels Status: Acute Assessment and Plan: she already had elevated transaminases at baseline, higher than usual because of pancreatitis mrcp reviewed, no stones (4) Dilated bile duct: Code(s): K83.8 - Other specified diseases of biliary tract Status: Acute Assessment and Plan: mrcp no stones or lesion in bile duct Subjective Date/time seen: 11/06/22 15:30 Interval history: doing much better today and ready to go home Review of Systems Review of Systems: All systems reviewed & are unremarkable except as noted in HPI and below Exam Narrative: General: comfortable HEENT: Wearing glasses. PERRL, EOMI. Sclera anicteric. Neck: Supple. Respiratory: Lungs are clear to auscultation bilaterally. Cardiovascular: Regular rate and rhythm with S1-S2. Gastrointestinal: Abdomen is soft and nondistended with positive bowel sounds. No guarding or rebound tenderness. Skin: Warm and dry. No rash. Extremities: No cyanosis, clubbing, or edema. Neurological: Alert. Cranial nerves 2-12 are grossly intact. No gross focal deficits to casual conversation. Psychiatric: Pleasant and cooperative with normal mood and affect. Judgment and insight intact. Objective Data Vital Signs Vital Signs: Vital Signs - 24 hr 11/05/22 22:00 11/06/22 00:13 11/06/22 05:32 Temperature 97.5 F L Pulse Rate 65 65 60 Respiratory Rate 18 Blood Pressure 142/63 H Pulse Oximetry 93 94 93 Oxygen Delivery CPAP CPAP 11/06/22 06:00 11/06/22 14:00 Temperature 98.4 F 97.5 F L Pulse Rate 60 71 Respiratory Rate 16 16 Blood Pressure 151/73 H 142/70 H Pulse Oximetry 93 98 Oxygen Delivery Intake/Output Intake/Output: Intake & Output 11/03/22 11/04/22 11/05/22 11/06/22 23:59 23:59 23:59 23:59 Intake Total 3508 1370 1900 700 Balance 3508 1370 1900 700 Meds/Results Medications: Active Medications Generic Name Dose Route Start Last Admin Trade Name Freq PRN Reason Stop Dose Admin Allopurinol 300 mg 11/03/22 11:00 11/06/22 10:12 Allopurinol 300 Mg Tablet PO 300 mg DAILY BIPIN Administration Atorvastatin Calcium 40 mg 11/03/22 11:00 11/06/22 10:12 Atorvastatin 40 Mg Tablet PO 40 mg DAILY BIPIN Administration Dextrose 12.5 gm 10/31/22 15:49 Dextrose 50% 25 Gm/50 Ml Syringe IV PUSH PRN PRN Hypoglycemia Protocol Glucagon 1 mg 10/31/22 15:49 Glucagon For Inj 1 Mg Vial IM PRN PRN Hypoglycemia Protocol Glucose 15 gm 10/31/22 15:49 Glucose Oral Gel 15 Gm Of Glucse In 37.5 Gm Tube PO PRN PRN Hypoglycemia Protocol Hydromorphone HCl 0.5 mg 10/31/22 15:55 11/05/22 07:46 Hydromorphone Hcl Inj (*Crx) 1 Mg/Ml Syr IV PUSH 0.5 mg Q4H PRN Administration Pain Rated 7-10 Dextrose 1,000 mls @ 100 mls/hr 10/31/22 15:49 Dextrose 5% 1,000 Ml IVPB PRN PRN Hypoglycemia Protocol Sodium Chloride 1,000 mls @ 75 mls/hr 11/04/22 11:40 11/05/22 22:05 Normal Saline Iv IV CONT 75 mls/hr .[id number] BIPIN Administration Insulin Aspart 2 - 5 units 10/31/22 17:00 11/06/22 12:37 Insulin Aspart (*Bkc) 100 Units/Ml SUB-Q 2 units TIDWM BIPIN Administration Protocol Insulin Human NPH 34 units 10/31/22 21:00 11/05/22 22:06 Insulin Hu
[2022-11-08 16:40] LABS: Alpha Fetoprotein Tumor Marker 2.7 ng/mL (<6.1)
[2022-11-08 20:06] LABS: Immunoglobulin G, Serum 607 mg/dL (600-1540); Immunoglobulin G1 319 mg/dL (382-929); Immunoglobulin G2 208 mg/dL (241-700); Immunoglobulin G3 27 mg/dL (22-178); Immunoglobulin G4 17.3 mg/dL (4.0-86.0)
[2022-11-08 22:05] LABS: CA 19-9 127 U/mL (<34)
== END 2022-11-06 16:20 | disposition home or self-care (01) | DRG 440 ==
LOC: ANHED 12:44 → ANH3MEDSUR 13:17
PROVIDERS: Emergency Medicine; Internal Medicine; Internal Medicine Gastroenterology; Physician Assistant; Admitting Provider Family Medicine; Emergency Provider Nurse Practitioner Family; Visit Provider Chiropractor
DX: K85.90 Acute pancreatitis without necrosis or infection, unspecified (principal); K74.60 Unspecified cirrhosis of liver; N20.0 Calculus of kidney; E11.9 Type 2 diabetes mellitus without complications; I10 Essential (primary) hypertension; R91.1 Solitary pulmonary nodule; R16.0 Hepatomegaly, not elsewhere classified; K75.81 Nonalcoholic steatohepatitis (NASH); Z20.822 Contact with and (suspected) exposure to COVID-19; Z79.4 Long term (current) use of insulin; Z79.84 Long term (current) use of oral hypoglycemic drugs; Z79.899 Other long term (current) drug therapy; Z88.2 Allergy status to sulfonamides
CPT/HCPCS: 36415; 74177; 74183; 76376; 80048; 80053; 80074; 80307; 81001; 81003; 82105; 82378; 82550; 82784; 82787; 82948; 83036; 83690; 83735; 84443; 85025; 85027; 85610; 85730; 86301; 87086; 87088; 96360; 99202; 99285; A9270; A9577; G0378; G0463; J1170; J1815; J2405; J3480; J7030; J7040; Q9967; U0003; U0005